=== PATIENT | male | born 1935 | race Caucasian/White ===

== ENCOUNTER 2017-09-18 09:00 | Outpatient (RCR) | payer OTHER | END 2017-09-19 | disposition home or self-care (01) | LOC: PTY 09:00 | DX: M54.5 Low back pain (principal) ==

== ENCOUNTER 2017-09-20 13:00 | Outpatient (RCR) | payer OTHER | END 2017-10-17 | disposition home or self-care (01) | LOC: PTY 13:00 | DX: M54.5 Low back pain (principal) ==